=== PATIENT | female | born 1985 | race Caucasian/White ===

== ENCOUNTER 2016-10-13 05:43 | Day surgery (SDC) | payer BC, OTHER ==
[2016-10-12 09:31] VITALS: BP 109/74
[~2016-10-13] VITALS: Ht 165.1 cm; Wt 62.0 kg
[~2016-10-13 05:43] MED LIST: ALPR-475 PO
[2016-10-13] MEDS ORDERED: VASOPRESSIN 20 UNIT/ML, 1ML ONE ×2 (06:14→06:16)
[2016-10-13] MEDS ORDERED: MISOPROSTOL 200 MCG TABLET ONE (06:14)
[2016-10-13] MEDS ORDERED: OXYTOCIN 10 UNITS/ML, 1ML ONE (06:14)
[2016-10-13] MEDS ORDERED: METHYLERGONOVINE 0.2 MG/ML IM ONE (06:15)
[2016-10-13] MEDS ORDERED: SILVER NITRATE STICK TP ONE (06:17)
[2016-10-13] MEDS ORDERED: LACTATED RINGERS 1,000 ML IV SCH (06:19)
[2016-10-13] MEDS ORDERED: LIDOCAINE 1%, 2ML SQ PRN (06:30)
[2016-10-13] MEDS ORDERED: MIDAZOLAM 1 MG/ML, 2ML ONE (06:35)
[2016-10-13] MEDS ORDERED: FENTANYL PF 100 MCG/2ML ONE ×2 (06:36→07:45)
[2016-10-13] MEDS ORDERED: MEPERIDINE/PF 25MG/0.5ML IVPush PRN (07:00)
[2016-10-13] MEDS ORDERED: HYDROmorphone 1 MG/ML, 1ML IV PRN (07:00)
[2016-10-13] MEDS ORDERED: ACETAMINOPHEN 325 MG TABLET PO PRN (07:00)
[2016-10-13] MEDS ORDERED: OXYcodone 5 MG/5 ML ORAL.SOL UDC PO PRN (07:00)
[2016-10-13] MEDS ORDERED: ONDANSETRON 2MG/ML, 2ML ONE (07:06)
[2016-10-13] MEDS ORDERED: KETOROLAC 30 MG/1 ML ONE (07:06)
[2016-10-13] MEDS ORDERED: ROCURONIUM 10 MG/ML ONE (07:06)
[2016-10-13] MEDS ORDERED: PROPOFOL 10 MG/ML, 20ML ONE (07:06)
[2016-10-13] MEDS ORDERED: DEXAMETHASONE 4 MG/ML, 1ML ONE (07:06)
[2016-10-13] MEDS ORDERED: OXYcodone 5 MG/5 ML ORAL.SOL UDC ONE (07:45)
[2016-10-13] MEDS: FENTANYL PF 100 MCG/2ML IV PRN ×2 (07:47→07:59)
== END 2016-10-13 09:15 ==
LOC: OUT 05:43
PROVIDERS: ATTEND Obstetrics & Gynecology
DX: O02.1 Missed abortion (principal)
CPT/HCPCS: 36415; 59820; 86900; 88305; J1100; J1885; J2250; J2405; J2704; J3010; J2210; J2590